=== PATIENT | male | born 1990 | race Caucasian/White ===

== ENCOUNTER 2019-09-30 17:30 | Emergency (ER) | payer BC ==
--- NOTE | 2019-09-30 18:21 | ULT ---
SCROTAL ULTRASOUND INDICATION: Testicular pain TECHNIQUE: Grayscale, color Doppler spectral Doppler images were obtained of the scrotum. COMPARISON: None. FINDINGS: Right Testicle: Size: 3.9 x 2.3 x 4.6. Flow: There is normal vascular flow to the right testicle Hydrocele: No right-sided hydrocele is evident Epididymis: Tiny right epididymal head cyst measuring 3 mm. Left Testicle: Size: 3.6 x 2.4 x 4.6 cm. Flow: There is normal vascular flow to left testicle. Hydrocele: No left sided hydrocele seen. Epididymis: The left epididymis appears within normal limits. Additional findings: None. Impression: 1. No evidence of testicular torsion or intratesticular mass. 2. Small right epididymal head cyst.
[2019-09-30 19:13] LABS: Bilirubin Negative (Negative); Blood, Urine Negative (Negative); Clarity Clear (Clear); Glucose, Urine (Dipstick) 200 mg/dL (Negative); Leukocyte Negative Leu/uL (Negative); Nitrite Negative (Negative); Protein, Urine (Dipstick) Negative (Neg-Trace); Urobilinogen Normal mg/dL (Less than 2)
== END 2019-09-30 19:38 | disposition home or self-care (01) ==
LOC: ERS 17:30
DX: N50.3 Cyst of epididymis (principal); E10.9 Type 1 diabetes mellitus without complications
CPT/HCPCS: 76870; 81003; 93976